=== PATIENT | female | born 2000 | race Caucasian/White ===

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

== ENCOUNTER 2018-06-20 14:20 | Emergency (ER) | payer BC ==
[2018-06-20 14:25] VITALS: TEMP 98.1
[2018-06-20] MEDS ORDERED: KETOROLAC 30 MG/ML 1 ML VIAL IVP STA (14:31)
[2018-06-20] MEDS ORDERED: KETOROLAC 30 MG/ML 1 ML VIAL IM STA (14:42)
--- NOTE | 2018-06-20 14:51 | ED ---
General Adult HPI - General Chief complaint: Extremity Injury, Upper Stated complaint: Shoulder injury Time Seen by Provider: 06/20/18 14:26 Source: patient, RN notes reviewed, old records reviewed Mode of arrival: ambulatory Limitations: no limitations - History of Present Illness Initial comments: 17-year-old female presenting with left shoulder injury. Patient was playing softball, she is ambulatory with some intermittent shoulder pain and possible impingement of the left shoulder. She jumped and reached into the air and felt sudden onset of pain in her shoulder. She is presenting with concern for shoulder dislocation. Denies pain distal to the shoulder denies numbness or tingling. She has no chronic medical problems she is otherwise healthy. She denies current . - Related Data Previous Rx's Medication Instructions Recorded Ibuprofen [Motrin] 600 mg PO Q8HR PRN #24 tab 06/20/18 Allergies Allergy/AdvReac Type Severity Reaction Status Date / Time No Known Allergies Allergy Verified 06/20/18 14:25 Review of Systems ROS Statement: Those systems with pertinent positive or pertinent negative responses have been documented in the HPI. ROS Other: All systems not noted in ROS Statement are negative. Past Medical History Past Medical History: No Reported History History of Any Multi-Drug Resistant Organisms: None Reported Past Surgical History: No Surgical Hx Reported Past Psychological History: No Psychological Hx Reported Smoking Status: Never smoker Past Alcohol Use History: Occasional Past Drug Use History: None Reported General Exam Limitations: no limitations General appearance: alert, in no apparent distress Head exam: Present: atraumatic, normocephalic Eye exam: Present: normal appearance, PERRL ENT exam: Present: normal exam Neck exam: Present: normal inspection. Absent: tenderness, meningismus Respiratory exam: Present: normal lung sounds bilaterally. Absent: respiratory distress, wheezes Cardiovascular Exam: Present: regular rate, normal rhythm GI/Abdominal exam: Present: soft. Absent: distended, tenderness Extremities exam: Present: tenderness (Tenderness anterior shoulder, decreased range of motion secondary to pain), other (Neurovascularly intact). Absent: full ROM Neurological exam: Present: alert, oriented X3, CN II-XII intact, normal gait. Absent: motor sensory deficit Skin exam: Present: warm, dry, intact. Absent: cyanosis, diaphoretic Course Vital Signs 06/20/18 14:21 Temperature 98.1 F Pulse Rate 101 H Respiratory 16 Rate Blood Pressure 121/73 O2 Sat by Pulse 98 Oximetry Medical Decision Making - Medical Decision Making 17-year-old with left shoulder injury. This was injury with abduction. Injury occurred during a softball game just prior to arrival. No other injuries reported. Patient is otherwise healthy and well-appearing. Chest tenderness over the before meals joint, some pain with range of motion. X-rays obtained, negative for fracture dislocation. May be slight widening of the before meals joint. Patient is maintained in a sling. She will be given orthopedic follow- up. She will ice this joint and take Motrin for pain. Disposition Clinical Impression: Strain of shoulder, AC separation Disposition: HOME SELF-CARE Condition: Good Instructions (If sedation given, give patient instructions): Acromioclavicular Separation (ED), Shoulder Sprain (ED) Prescriptions: Ibuprofen [Motrin] 600 mg PO Q8HR PRN #24 tab PRN Reason: Pain Is patient prescribed a controlled substance at d/c from ED?: No Referrals: None,Stated [Primary Care Provider] - 1-2 days Allen Hernandez DO [Medical Doctor] - 1-2 days Time of Disposition: 15:00
--- NOTE | 2018-06-20 14:54 | XR ---
EXAMINATION TYPE: XR shoulder complete LT DATE OF EXAM: 06/20/2018 COMPARISON: NONE HISTORY: Pain TECHNIQUE: 3 views FINDINGS: I see no fracture nor dislocation. Glenohumeral joint is intact. There are no pathologic ca lcifications. There is very slight widening of the AC joint space. This could relate to minimal ligamentous tear. IMPRESSION: Possible small ligamentous tear of the AC joint. No fracture.
[2018-06-20 15:20] VITALS: BP 115/68; PULSE 90; RESP 18
== END 2018-06-20 15:19 | disposition home or self-care (01) ==
LOC: EC 14:20
DX: S43.102A Unspecified dislocation of left acromioclavicular joint, initial encounter (principal); X58.XXXA Exposure to other specified factors, initial encounter; Y93.64 Activity, baseball
CPT/HCPCS: 99284; 96372; 73030; J1885